=== PATIENT | male | born 2000 | race Caucasian/White ===

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

== ENCOUNTER → 2018-04-19 | Outpatient (CLI) | payer BC ==
--- NOTE | 2018-04-19 15:46 | RAD ---
EXAM DESCRIPTION: Left ankle, 3 views CLINICAL HISTORY: ANKLE PAIN FINDINGS/ IMPRESSION: Ankle mortise is symmetric. No advanced arthrosis or focal osteochondral lesion No tarsal fracture. Normal mineralization Electronically signed by: Ronny Thomas MD 04/19/2018 3:44 PM [facility]
== END ==
LOC: RAD 15:24
PROVIDERS: ATTEND Nurse Practitioner Family
DX: M25.579 Pain in unspecified ankle and joints of unspecified foot (principal)

== ENCOUNTER → 2018-05-18 | Outpatient (CLI) | payer OTHER ==
--- NOTE | 2018-05-19 08:47 | RAD ---
EXAM: Ankle,Left 2 Views CLINICAL HISTORY: PAIN IN LEFT ANKLE AND JOINTS OF LEFT FOOT. TECHNIQUE: AP, lateral images. COMPARISON STUDY: April 19, 2018 FINDINGS: Bone structures and joint spaces appear normal. No fracture or dislocation identified. IMPRESSION: Negative left ankle. Electronically signed by: Rolf Camara MD 05/19/2018 8:45 AM [facility]
== END ==
LOC: YCFC.O 10:30
PROVIDERS: ATTEND Nurse Practitioner Family
DX: M25.572 Pain in left ankle and joints of left foot (principal)

== ENCOUNTER → 2020-08-06 | Outpatient (CLI) | payer OTHER | LOC: YCFC.O 10:20 | PROVIDERS: ATTEND Nurse Practitioner Family | DX: Z20.828 Contact with and (suspected) exposure to other viral communicable diseases (principal) ==